=== PATIENT | male | born 1955 | race Caucasian/White ===

== ENCOUNTER 2024-07-14 07:18 | Inpatient (IN) | payer OTHER ==
[~2024-07-14] VITALS: Ht 180.3 cm; Wt 84.7 kg
--- NOTE | 2024-07-14 07:45 | ED.PDOC ---
History of present illness HPI Comments 68 y.o male presents to the ED for a chief complaint of increased urinary frequency associated with intermittent dysuria that started 1 week ago. Patient reports no hematuria, fever or chills. Patient presents with a BG of 447, states he is compliant with taking Metformin and has not missed a dose. Patient denies any vision changes, SOB, chest pain, dry mouth. He denies any substance, alcohol or tobacco use. Chief Complaint: Hyperglycemia Time Seen by MD: 07:25 History of present illness: Nurses Notes, Medications, Allergies Allergies: Uncoded Allergies: CODIENE (Allergy, Unknown, 07/14/24) Information Source: Patient Mode of Arrival: Ambulatory Timing: Weeks (1) Duration: Since onset [place]: Other History of: Diabetes Associated signs and symptoms: Other Past Medical History PAST MEDICAL HISTORY: DM, HTN Surgical History: Denies all surgeries Family History Family History: Reviewed,noncontributory to illness Social History Smoker: Non-Smoker Alcohol: Denies ETOH Use Drugs: Denies Drug Use Lives In: Home Constitutional: denies: chills, diaphoresis, fatigue, fever, malaise, sweats, weakness, others EENTM: denies: blurred vision, double vision, ear bleeding, ear discharge, ear drainage, ear pain, ear ringing, eye pain, eye redness, hearing loss, mouth pain, mouth swelling, nasal discharge, nose bleeding, nose congestion, nose pain, photophobia, tearing, throat pain, throat swelling, voice changes, others Respiratory: denies: cough, hemoptysis, orthopnea, SOB at rest, shortness of breath, SOB with excertion, stridor, wheezing, others Cardiovascular: denies: chest pain, dizzy spells, diaphoresis, Dyspnea on exertion, edema, irregular heart beat, left arm pain, lightheadedness, pal pitations, PND, syncope, others Gastrointestinal: denies: abdomen distended, abdominal pain, blood streaked bowels, constipated, diarrhea, dysphagia, difficulty swallowing, hematemesis, melena, nausea, poor appetite, poor fluid intake, rectal bleeding, rectal pain, vomiting, others Genitourinary: reports: dysuria, frequency; denies: burning, flank pain, hematuria, incontinence, penile discharge, penile sore, pain, testicle pain, testicle swelling, urgency, others Neurological: denies: dizziness, fainting, headache, left sided numbness, left sided weakness, numbness, paresthesia, pre-existing deficit, right sided numbness, right sided weakness, seizure, speech problems, tingling, tremors, weakness, others Musculoskeletal: denies: back pain, gout, joint pain, joint swelling, muscle pain, muscle stiffness, neck pain, others Integumetry: denies: bruises, change in color, change in hair/nails, dryness, laceration, lesions, lumps, rash, wounds, others Allergic/Immunocompromised: denies: Difficulty Healing, Frequent Infections, Hives, Itching, others Hematologic/Lymphatic: denies: anemia, blood clots, easy bleeding, easy bruising, swollen glands, others Endocrine: denies: excessive hunger, excessive sweating, excessive thirst, excessive urination, flushing, intolerance to cold, intolerance to heat, unexp lained weight gain, unexplained weight loss, others Psychiatric: denies: anxiety, bipolar disorder, depression, hopeless, panic disorder, schizophrenia, sleepless, suicidal, others All Other Systems: Reviewed and Negative Physical Exam General Appearance: Moderate Distress HEENT: Normal ENT Inspection, Pharynx Normal, TMs Normal Neck: Full Range of Motion, Non-Tender, Normal, Normal Inspection Respiratory: Chest Non-Tender, Lungs Clear, No Accessory Muscle Use, No Respiratory Distress, Normal Breath Sounds Cardiovascular: No Edema, No JVD, No Murmur, No Gallop, Normal Peripheral Pulses, Regular Rate/Rhythm Breast Exam: Deferred Gastrointestinal: No Organomegaly, Non Tender, No Pulsatile Mass, Normal Bowel Sounds, Soft Genitalia: Deferred Pelvic: Deferred Rectal: Deferred Extremities: No calf tenderness, Normal capillary refill, Normal inspection, Normal range of motion, Non-tender, No pedal edema Musculoskeletal : Apperance: Normal Neurologic: Alert, shift supervisor film processing II-XII nml as Tested, No Motor Deficits, Normal Affect, Normal Mood, No Sensory Deficits Cerebellar Function: Normal Reflexes: Normal Skin: Dry, Normal Color, Warm Peripheral Pulses: 3+ Radial (R), 3+ Radial (L) Lymphatic: No Adenopathy Was a procedure done? Was a procedure done?: No Differential Diagnosis (DM) Differential Diagnosis: Dehydration, Electrolyte Abnormality, Hyperglycemia, Hyperosmolar State, UTI X-Ray, Labs, Meds, VS Vital Signs Date Time Temp Pulse Resp B/P (MAP) Pulse Ox O2 Delivery O2 Flow Rate FiO2 07/14/24 07:38 Room Air* 0 21 07/14/24 07:31 97.8 69 20 182/81 (114) 97 97.8 Lab Test 07/14/24 07:30 07/14/24 07:28 Range/Units Urine Color Pending Urine Clarity Pending Urine pH Pending Urine Specific [place] Pending Urine Protein Pending Urine Ketones Pending Urine Blood Pending Urine Nitrite Pending Urine Bilirubin Pending Urine Urobilinogen Pending Urine Leukocyte Esterase Pending Urine RBC Pending Urine Microscopic WBC Pending Urine Squamous Epithelial Cells Pending Urine Bacteria Pending Urine Glucose Pending POC Glucose 447 *H 70-106 mg/dl Patient alert. Complaining of frequent urination. Blood pressure elevated. Blood sugar elevate. Establish intravenous access. Was given fluids. Was given insulin. Was given clonidine. Abdomen is soft nontender. Reviewed his history. Explained to the patient. Continue monitoring. Time of 1ST Reevaluation: 07:42 Reevaluation 1ST: Unchanged Patient Education/Counseling: Diagnosis, Treatment, Prognosis Family Education/Counseling: No Family Present Departure 1 Departure Time of Disposition: 08:11 Impression: Primary Impression: Uncontrolled diabetes mellitus Qualified Codes: E13.65 - Other specified diabetes mellitus with hyperglycemia Additional Impression: Hypertensive urgency Disposition: ADMITTED INPATIENT Admit to: Med Surg Condition: Guarded Critical Care Note Critical Care Time?: No Stability Stability form required: No I personally scribed for JOHN HAMPTON MD ([email or web address]) on 07/14/24 at 07:45. Electronically submitted by Gabriela Pennington ([facility]). JOHN HAMPTON MD Jul 14, 2024 07:45
[2024-07-14 07:47] LABS: Urine Bacteria None Seen /hpf (None Seen)
[2024-07-14 08:25] LABS: Basophils # (auto) 0.1 10 ^3/uL (0-0.2); Basophils % (auto) 0.7 % (0.0-2.0); Eosinophils # (auto) 0.3 10 ^3/uL (0-0.8); Eosinophils % (auto) 2.9 % (0.0-7.0); Hematocrit 46.4 % (41.0-53.0); Hemoglobin 15.8 g/dL (13.5-17.5); Lymphocytes # (auto) 1.8 10 ^3/uL (0.4-5.4); Lymphocytes % (auto) 18.3 % (10.0-50.0); Mean Corpuscular Hemoglobin 29.1 pg (28.0-32.0); Mean Corpuscular Volume 85.8 fL (80.0-100.0); Monocytes # (auto) 0.7 10 ^3/uL (0-1.3); Monocytes % (auto) 7.5 % (0.0-12.0); Neutrophils # (auto) 6.8 10 ^3/uL (1.6-8.6); Neutrophils % (auto) 70.6 % (37.0-80.0); Platelet Count (auto) 253 10^3/uL (140-450); Red Blood Cells 5.41 10^6/uL (4.5-5.90); Red Cell Distribution Width 15.4 % (11.8-14.3); White Blood Cell 9.6 10^3/uL (4.4-10.8)
[2024-07-14 08:27] LABS: Chloride 101 mmol/L (98-107); Potassium 4.1 mmol/L (3.5-5.1)
[2024-07-14 08:28] LABS: Anion Gap 7 (5-15); Carbon Dioxide 25 mmol/L (20-31); Sodium 133 mmol/L (136-145)
[2024-07-14 08:29] LABS: Calcium 10.3 mg/dL (8.7-10.4)
[2024-07-14 08:34] LABS: BUN/Creatinine Ratio 10.4 (10.0-20.0); Blood Urea Nitrogen 12 mg/dL (9-23)
[2024-07-14 08:35] LABS: Urine Blood TRACE /uL (Negative); Urine Clarity Clear (Clear); Urine Protein, UAD Negative (Negative); Urine Specific Gravity 1.027 (1.001-1.035); Urine Squamous Epithelial Cell None Seen /hpf (<5); Urine Urobilinogen Normal (Negative)
[2024-07-14 08:36] LABS: Urine Color Light-Yellow (Yellow)
[2024-07-14 08:36] LABS: Glucose 462 mg/dL (74-106)
[2024-07-14] MEDS: InsuLIN REG 1unit/0.01ml Soln (100units/ml) IV ONE (08:43)
[2024-07-14] MEDS: cloNIDine HCL 0.1 MG TAB PO ONE (09:32)
[2024-07-14] MEDS ORDERED: NITROGLYCERIN 0.4 MG SL TAB SL PRN (16:30)
[2024-07-14] MEDS ORDERED: HYDROcodone-ACET 5/325MG TAB PO PRN (16:30)
[2024-07-14] MEDS ORDERED: DOCUSATE SOD 100 MG CAP PO PRN (16:30)
[2024-07-14] MEDS ORDERED: ONDANSETRON HCL 4 MG/2 ML VIAL IV PRN (16:30)
[2024-07-14] MEDS ORDERED: MORPHINE SULFATE INJ 2 MG/ml SYRG IV PRN (16:30)
[2024-07-14] MEDS ORDERED: AMLO1TAB23 PO (16:36)
[2024-07-14] MEDS ORDERED: LISI40TA16 PO (16:36)
[2024-07-14] MEDS ORDERED: METF-370 PO (16:36)
[2024-07-14] MEDS ORDERED: ATOR40TA52 PO (16:36)
[2024-07-14] MEDS ORDERED: METO-159 PO (16:36)
[2024-07-14] MEDS ORDERED: DEXTROSE (50%) 50ML SYRG IV PRN (16:45)
[2024-07-14] MEDS ORDERED: hydrALAZINE HCL 20 MG/ML VL IV PRN (16:45)
[2024-07-14] MEDS: NIFEdipine ER 30 MG TAB PO ONE (16:56)
[2024-07-14] MEDS: InsuLIN REG 1unit/0.01ml Soln (100units/ml) SC SCH ×2 (16:57→21:18)
[2024-07-14] MEDS: ACCU-CHEK COMFORT CURVE STRIP VI SCH (17:01)
--- NOTE | 2024-07-14 17:06 | DVHHP2 ---
History of Present Illness Reason for Visit: Urinary frequency History of Present Illness Sixto Ferrara is a 68-year-old male with a past medical history of diabetes, hypertension, and hyperlipidemia who came in due to frequent urination and excessive thirst. The patient states this has been happening for a little over a week. He states he thought he had a urinary infection. Patient states he takes his medications in the morning, but sometimes forgets to take them at night. He states he has been diabetic for about 10 years and his medications have never changed. Patient states his primary care provider has been managing his hypertension as well, and that he has not seen a seamer elastic band in years. He has not had an ECHO in years either. Cardiovascular: HTN, hyperipidemia Endocrine: Diabetes Past Surgical History: None Smoke: No ALCOHOL: none Drugs: None Lives: with Family Domestic Violence: Neg Review of Systems Constitutional: No: Fever, Chills, Sweats, Weakness, Malaise, Other Eyes: No: Pain, Vision change, Conjunctivae inflammation, Eyelid inflammation, Other, Redness ENT: No: Ear pain, Ear discharge, Nose pain, Nose discharge, Nose congestion, Mouth pain, Mouth swelling, Throat pain, Throat swelling, Other Respiratory: No: Cough, Dry, Shortness of breath, SOB with excertion, Wheezing, Hemoptysis, Pleuritic Pain, Sputum, Wheezing, Other Cardiovascular: No: Chest Pain, Palpitations, Orthopnea, Paroxysmal Noc. Dyspnea, Edema, Lt Headedness, Other Gastrointestinal: No: Nausea, Vomiting, Abdominal Pain, Diarrhea, Constipation, Melena, Hematochezia, Other Genitourinary: No Dysuria; Frequency; No Incontinence, No Hematuria, No Retention, No Other Musculoskeletal: No: other, neck pain, shoulder pain, arm pain, back pain, hand pain, leg pain, foot pain Skin: No: Rash, Lesions, Jaundice, Bruising, Other Neurological: No: Weakness, Numbness, Incoordination, Change in speech, Confusion, Seizures, Other Allergies: Uncoded Allergies: CODIENE (Allergy, Unknown, 07/14/24) Medications Current Medications Medications Dose Ordered Sig/Param Route Start Time Stop Time Status Last Admin Dose Admin Acetaminophen/ Hydrocodone Bitart 1 tab Q4HP PRN PO 07/14/24 16:30 Ondansetron HCl 4 mg Q4HP PRN IV 07/14/24 16:30 Docusate Sodium 100 mg BIDPRN PRN PO 07/14/24 16:30 Acetaminophen 650 mg Q6HP PRN PO 07/14/24 16:30 Nitroglycerin 0.4 mg Q5MINP PRN SL 07/14/24 16:30 Morphine Sulfate 2 mg Q30M PRN IV 07/14/24 16:30 Nifedipine 90 mg DAILY PO 07/15/24 10:00 UNV Metformin HCl 500 mg BID PO 07/14/24 22:00 UNV Patient Own Medication 1 tab HS PO 07/14/24 22:00 UNV Patient Own Medication 1 tab DAILY PO 07/15/24 10:00 UNV Exam Vital Signs Vital Signs Date Time Temp Pulse Resp B/P (MAP) Pulse Ox O2 Delivery O2 Flow Rate FiO2 07/14/24 14:00 98.2 70 16 114/69 (84) 95 98.2 07/14/24 07:38 Room Air* 0 21 General Appearance: Alert, Oriented X3, Cooperative, mild distress HEENT: Atraumatic, PERRLA, Mucous membr. moist/pink Respiratory: Clear to auscultation, Normal air movement, Other Cardiovascular: Regular rate, Normal S1, Normal S2 Abdominal: Normal bowel sounds, Soft, No tenderness, No hepatospenomegaly Extremities: No clubbing, No cyanosis, No edema, Normal pulses, No tenderness/swelling Skin: No rashes, No breakdown, No significant lesion Neuro: Normal gait, Normal speech, Strength at 5/5 X4 ext Psych/Mental Status: Mental status NL, Mood NL Labs/Xrays Labs Test 07/14/24 09:52 07/14/24 07:59 07/14/24 07:30 Range/Units POC Glucose 345 H 70-106 mg/dl White Blood Count 9.6 4.4-10.8 10^3/uL Red Blood Count 5.41 4.5-5.90 10^6/uL Hemoglobin 15.8 13.5-17.5 g/dL Hematocrit 46.4 41.0-53.0 % Mean Corpuscular Volume 85.8 80.0-100.0 fL Mean Corpuscular Hemoglobin 29.1 28.0-32.0 pg Mean Corpuscular Hemoglobin Concent 34.0 32.0-36.0 g/dL Red Cell Distribution Width 15.4 H 11.8-14.3 % Platelet Count 253 140-450 10^3/uL Mean Platelet Volume 8.1 6.9-10.8 fL Neutrophils (%) (Auto) 70.6 37.0-80.0 % Lymphocytes (%) (Auto) 18.3 10.0-50.0 % Monocytes (%) (Auto) 7.5 0.0-12.0 % Eosinophils (%) (Auto) 2.9 0.0-7.0 % Basophils (%) (Auto) 0.7 0.0-2.0 % Neutrophils # (Auto) 6.8 1.6-8.6 10 ^3/uL Lymphocytes # (Auto) 1.8 0.4-5.4 10 ^3/uL Monocytes # (Auto) 0.7 0-1.3 10 ^3/uL Eosinophils # (Auto) 0.3 0-0.8 10 ^3/uL Basophils # (Auto) 0.1 0-0.2 10 ^3/uL Nucleated Red Blood Cells 0.0 % Sodium Level 133 L 136-145 mmol/L Potassium Level 4.1 3.5-5.1 mmol/L Chloride Level 101 98-107 mmol/L Carbon Dioxide Level 25 20-31 mmol/L Anion Gap 7 5-15 Blood Urea Nitrogen 12 9-23 mg/dL Creatinine 1.15 0.700-1.30 mg/dL Glomerular Filtration Rate Calc 70 >90 mL/min BUN/Creatinine Ratio 10.4 10.0-20.0 Serum Glucose 462 *H 74-106 mg/dL Calcium Level 10.3 8.7-10.4 mg/dL Urine Color Light-yellow Yellow Urine Clarity Clear Clear Urine pH 5.0 5.0-9.0 Urine Specific [place] 1.027 1.001-1.035 Urine Protein Negative Negative Urine Ketones Negative Negative Urine Blood Trace H Negative /uL Urine Nitrite Negative Negative Urine Bilirubin Negative Negative Urine Urobilinogen Normal Negative mg/dL Urine Leukocyte Esterase Negative Negative /uL Urine RBC <1 0 - 3 /hpf Urine Microscopic WBC 0-3 /HPF Urine Squamous Epithelial Cells None seen <5 /hpf Urine Bacteria None seen None Seen /hpf Urine Glucose 4+ H Normal mg/dL Assessment/Plan Assessment/Plan Assessment: Uncontrolled diabetes mellitus, Hypertensive urgency, Hyperlipidemia, Plan: Admit to [facility], Antihypertensives, PRN antihypertensives, Accu checks Q AC&HS with sliding scale, Start glipizide, A1c, Home medications reconciled, Plan discussed with: Patient My Orders Orders - GEO TINOCO Procedure Category Date Status Time Admit ADMIT 07/14/24 Transmitted 16:28 Code Status CODE 07/14/24 Transmitted 16:28 2 Gm Sodium Diet DIET 07/14/24 Transmitted Dinner Hydrocodone-Acet PHA 07/14/24 In Process 5/325mg Tab ([place] 16:30 Ondansetron Hcl PHA 07/14/24 In Process (Zofran) 16:30 Docusate Sodium PHA 07/14/24 In Process Capsule (Colace 16:30 Complete Blood Count LAB 07/15/24 Verified 04:00 Comprehensive LAB 07/15/24 Verified Metabolic Panel 04:00 Condition: Serious BAILEY 07/14/24 In Process 16:28 Acetaminophen Tablet PHA 07/14/24 In Process (Tylenol Tablet) 16:30 Nitroglycerin PHA 07/14/24 In Process Sublingual (Ntrostat 16:30 Morphine Sulfate PHA 07/14/24 In Process Injection 16:30 Stat Ekg For Chest BAILEY 07/14/24 In Process Pain 16:28 Notify Md Of Changes BAILEY 07/14/24 In Process From Base 16:28 Sheltered Workshop Worker For BAILEY 07/14/24 In Process 24 Hours 16:28 Emergency Dysrhythmia BAILEY 07/14/24 In Process Protocol 16:28 Rhythm Strips Once BAILEY 07/14/24 In Process Every Shift 16:28 Oxygen By Nasal RT 07/14/24 Transmitted Cannula 16:28 Nifedipine Er PHA 07/14/24 Logged (Procardia Xl 16:45 Nifedipine Er PHA 07/15/24 Logged (Procardia Xl 10:00 Metformin PHA 07/14/24 Logged Hydrochloride 22:00 (Nf) Atorvastatin PHA 07/14/24 Logged Calcium 22:00 (Nf) Lisinopril PHA 07/15/24 Logged 10:00 Carvedilol Tablet PHA 07/14/24 Verified (Coreg Tablet) 22:00 Date of Service: Jul 14, 2024 Billing Provider: GEO TINOCO Common Visit Codes: [id number] INP/OBS CARE (MOD) GEO TINOCO Jul 14, 2024 17:06
[2024-07-14] MEDS ORDERED: METO-158 PO (17:10)
[2024-07-14 17:53] VITALS: BP 174/85; PULSE 73; RESP 19; TEMP 97.8; O2SAT 98
[2024-07-14 18:08] VITALS: PULSE 73; RESP 19; O2SAT 98
--- NOTE | 2024-07-14 18:09 | DVH ---
Portable chest CLINICAL INDICATION: Shortness of breath FINDINGS: Heart size is slightly enlarged. The aorta is tortuous. No infiltrates or effusions. IMPRESSION: 1. No acute cardiopulmonary pathology
[2024-07-14] MEDS: glipiZIDE 5 MG TAB PO SCH (18:30)
[2024-07-14 20:00] VITALS: PULSE 72
[2024-07-14 20:48] VITALS: BP 159/85; PULSE 76; RESP 16; TEMP 98.1; O2SAT 94
[2024-07-14] MEDS: ATORVASTATIN 20 MG TAB PO SCH (21:19)
[2024-07-14] MEDS: CARVEDILOL 3.125 MG TAB PO SCH (21:20)
[2024-07-14] MEDS: metFORMIN HYDROCHLORIDE 500 MG TAB PO SCH (21:20)
[2024-07-14] MEDS ORDERED: PATIENTS OWN MEDICATION (Atorvastatin Calcium 1 TAB) PO SCH (22:00)
[2024-07-15] VITALS (8 sets, daily range): BP systolic 126–153; BP diastolic 66–92; PULSE 68–84; RESP 14–18; TEMP 97.7–98.2; O2SAT 94–97
[2024-07-15 06:54] LABS: Alanine Aminotransferase 24 U/L (7-40); Albumin 4.1 g/dL (3.2-4.8); Alkaline Phosphatase 104 U/L (46-116); Anion Gap 9 (5-15); Aspartate Aminotransferase 15 U/L (13-40); Bilirubin, Total 0.6 mg/dL (0.2-1.0); Calcium 9.9 mg/dL (8.7-10.4); Carbon Dioxide 24 mmol/L (20-31); Chloride 104 mmol/L (98-107); Sodium 137 mmol/L (136-145); Total Protein 6.5 g/dL (5.7-8.2)
[2024-07-15 06:58] LABS: Basophils # (auto) 0 10 ^3/uL (0-0.2); Basophils % (auto) 0.4 % (0.0-2.0); Eosinophils # (auto) 0.3 10 ^3/uL (0-0.8); Eosinophils % (auto) 3.5 % (0.0-7.0); Hematocrit 45.6 % (41.0-53.0); Hemoglobin 15.6 g/dL (13.5-17.5); Lymphocytes # (auto) 1.8 10 ^3/uL (0.4-5.4); Lymphocytes % (auto) 20.5 % (10.0-50.0); Mean Corpuscular Hemoglobin 28.7 pg (28.0-32.0); Mean Corpuscular Hgb Conc. 34.2 g/dL (32.0-36.0); Mean Corpuscular Volume 83.9 fL (80.0-100.0); Monocytes # (auto) 0.8 10 ^3/uL (0-1.3); Monocytes % (auto) 9.6 % (0.0-12.0); Neutrophils # (auto) 5.6 10 ^3/uL (1.6-8.6); Nucleated Red Blood Cells % 0.1 %; Platelet Count (auto) 230 10^3/uL (140-450); Red Blood Cells 5.44 10^6/uL (4.5-5.90); Red Cell Distribution Width 15.3 % (11.8-14.3); White Blood Cell 8.5 10^3/uL (4.4-10.8)
[2024-07-15 07:02] LABS: Blood Urea Nitrogen 8 mg/dL (9-23); Glucose 156 mg/dL (74-106)
[2024-07-15] MEDS: INSULIN LANTUS (GLARGINE) 1 /0.01ml (100units/ml) SC SCH (09:10)
[2024-07-15] MEDS: ACETAMINOPHEN 325 MG TAB PO PRN (09:11)
[2024-07-15] MEDS: LISINOPRIL 20 MG TAB PO SCH (09:12)
[2024-07-15] MEDS: NIFEdipine ER 30 MG TAB PO SCH (09:13)
[2024-07-15] MEDS ORDERED: PATIENTS OWN MEDICATION (Lisinopril 1 TAB) PO SCH (10:00)
--- NOTE | 2024-07-15 15:20 | DVHPNRES ---
Progress Note Date Seen: Jul 15, 2024 Resident Creating Document: TAMRA LUCERO RESIDENT Has the PT tested + for MRSA If YES, has PT been informed?: No Medical Necessity Reason Pt with a Central, PICC or Fol: No Subjective Review of Systems This is a 68-year-old male with past medical history of hypertension, hyperlipidemia, type 2 diabetes mellitus who presented to the ED with chief complaint of urinary urgency, excessive thirst and nausea sensation. Patient stated that he has been having this sensation for the past five days but got worse recently prompting his visit to the ED. patient states that he takes all medications that are prescribed to him but when questioned in detail, the patient is not able to say which medication he takes and seems to be noncompliant. Patient reports that was diagnosed with diabetes for about more than 10 years ago and his medications has been the same since then. Upon admission, initial labs CBC and BNP were grossly unremarkable, hemoglobin A1c came back at 13.8% and blood glucose came back significantly elevated above 462 but no evidence of DKA at that time. Initial blood pressure was also significantly elevated at 180/85 mmHg. Initial creatinine was 1.15. Chest x- ray came back grossly unremarkable with no evidence of clear consolidations at this time. Patient was admitted for further assessment and management of hypertensive emergency and uncontrolled type 2 diabetes mellitus with severe hyperglycemia. Patient seen and examined at bedside. Patient reports urinary urgency and frequency, feeling thirsty and nausea sensation. We start the patient on Lantus 18 units q.a.m. with moderate sliding scale insulin. Despite aggressive hyperglycemia management blood glucose still over 250 at this time. Blood pressure has been better controlled at this time we will lisinopril 40 mg daily, nifedipine 90 mg daily, carvedilol 6.25 q.12. We will continue current medical management and most likely increase Lantus to 22 units q.a.m. patient denies fever/chills, chest pain, shortness of breath, motor or sensory deficits or any other symptoms at this time. ROS Constitutional: Denies weight loss, fever and chills. HEENT: Denies changes in vision and hearing. Respiratory: Denies shortness of breath and cough Cardiovascular: Denies chest discomfort or palpitations GI: Denies abdominal pain, nausea, vomiting and diarrhea. : Denies dysuria and urinary frequency. Musculoskeletal: Denies myalgias and joint pain Skin: Denies rash and pruritus. Neurological: Denies dizziness, headache, vision or hearing problems Objective vital signs Vital Sign Date Time Temp Pulse Resp B/P (MAP) Pulse Ox O2 Delivery O2 Flow Rate FiO2 07/15/24 13:00 98.2 73 14 145/87 (106) 94 98.2 07/15/24 08:00 Room Air* 0 21 Total Intake and Output 07/14/24 07/14/24 07/15/24 15:00 23:00 07:00 Intake Total 300 ml Balance 300 ml medications Current Medications Medications Dose Ordered Sig/Param Route Start Time Stop Time Status Last Admin Dose Admin Acetaminophen/ Hydrocodone Bitart 1 tab Q4HP PRN PO 07/14/24 16:30 Ondansetron HCl 4 mg Q4HP PRN IV 07/14/24 16:30 Docusate Sodium 100 mg BIDPRN PRN PO 07/14/24 16:30 Acetaminophen 650 mg Q6HP PRN PO 07/14/24 16:30 07/15/24 09:11 650 MG Nitroglycerin 0.4 mg Q5MINP PRN SL 07/14/24 16:30 Morphine Sulfate 2 mg Q30M PRN IV 07/14/24 16:30 Nifedipine 90 mg DAILY PO 07/15/24 10:00 07/15/24 09:13 90 MG Patient Own Medication 1 tab HS PO 07/14/24 22:00 UNV Patient Own Medication 1 tab DAILY PO 07/15/24 10:00 UNV Carvedilol 6.25 mg Q12HR PO 07/14/24 22:00 07/15/24 09:12 6.25 MG Atorvastatin Calcium 40 mg HS PO 07/14/24 22:00 07/14/24 21:19 40 MG Lisinopril 40 mg DAILY PO 07/15/24 10:00 07/15/24 09:12 40 MG Diagnostic Test (Pha) 1 strip ACHS 07/14/24 17:00 07/15/24 11:59 1 STRIP Insulin Human Regular HS SC 07/14/24 22:00 07/14/24 21:18 6 UNITS Insulin Human Regular AC SC 07/14/24 17:00 07/15/24 12:02 9 UNITS Dextrose 50 ml UD PRN IV 07/14/24 16:45 Hydralazine HCl 10 mg Q6HP PRN IV 07/14/24 16:45 Insulin Glargine 18 units QAM SC 07/15/24 09:00 07/15/24 09:10 18 UNITS Examination Physical Examination General: Patient alert and oriented in person, place and time. Patient following commands. HEENT: Normocephalic, atraumatic, moist mucous membranes Respiratory/pulmonary: Clear lungs bilaterally, no associated crackles or wheezes. Cardiovascular: Normal heart sounds S1 and S2 with no associated murmurs Abdomen: Abdomen nondistended, there is no pain to palpation in any of the abdominal quadrants, no palpable masses. Extremities: There is no peripheral edema present at the lower extremities. Peripheral Pulses: 3+ Radial (R). 3+ Radial (L). 3+ Dorsalis pedis (R). 3+ Dorsalis pedis(L) Skin: No rashes or pruritus, there is no sacral edema present at this time. Neurological: Intact cranial nerves with no focal neurologic deficits laboratory and microbiology Laboratory Tests 07/15/24 05:41 Test 07/15/24 05:41 Range/Units Serum Glucose 156 #H 74-106 mg/dL Problem List/Assessment/Plan Problem List/Assessment/Plan Assessment/plan Hypertensive emergency with organ damage (kidney) -initial blood pressure was 182/81mmhg -continue lisinopril 40 mg daily, nifedipine 90 mg daily, carvedilol 6.25 q.12 -monitor blood pressure closely KATHY likely due to above -initial creatinine was 1.15, currently at 0.89 -control BP -monitor kidney function, avoid nephrotoxic drugs Uncontrolled Type II Diabetes Mellitus -initial blood glucose was greater than 462 -hemoglobin A1c was 13.8% -patient was started on Lantus 18 units daily -we will increase Lantus to 22 units daily -continue moderate sliding scale insulin -monitor blood glucose closely Dyslipidemia -ordered lipid panel -continue atorvastatin 10 mg daily Goals of care discussed with the patient at bedside for > 25min, FULL CODE Plan discussed with Dr. Cavanaugh Plan discussed with: Patient My Orders My Orders Orders - TAMRA LUCERO Procedure Category Date Status Time Insulin Lantus PHA 07/15/24 In Process (Glargine) (Lantus) 09:00 Date of Service: Jul 15, 2024 Billing Provider: LIBERTAD CAVANAUGH MD Common Visit Codes: [id number] INP/OBS CARE(MOD) TAMRA LUCERO RESIDENT Jul 15, 2024 15:20 LIBERTAD CAVANAUGH MD Jul 15, 2024 21:49
--- NOTE | 2024-07-15 16:12 | DVHSR ---
APPROVED REPORT EXAM: Two-dimensional and M-mode echocardiogram with Doppler and color Doppler. Blood Pressure: 133/70 mmHg INDICATION Dizziness and Vertigo Structural deficits RISK FACTORS Height: 5'11", Weight: 190 DIMENSIONS LVDd4.4 (3.8-5.7cm)LA (2D)3.7 (1.9-4.0cm)Aortic Root3.3 (2.0-3.7cm) LVDs2.6 (2.5-4.0cm)LA (MM) (1.9-4.0cm)Aortic Cusp Exc1.9 (1.5-2.0cm) EF (%) 72.0 (55-70%)Rt. Atrium3.6 (1.9-4.0cm)Asc. Aorta2.9 cm IVSd1.0 (0.7-1.1cm)RV (D)3.8 (1.8-2.4cm) Mitral Valve MitralMitral Stenosis E wave0.56m/sMV Mean GR.mmHg A wave0.79m/sMV Peak GR.mmHg E/A ratio0.72D MVAcm2 DECEL [id number] 1/2 Timems Aortic Valve Aortic ValveAortic Stenosis V10.94m/Vinicius Mean GR.3mmHg V21.19m/Vinicius Peak GR.6mmHg LVOT Diameter2.2 (1.8-2.4cm)Doppler AVA3.00cm2 Pulmonic Valve V20.99m/s Other Information Quality : Technically LimitedRhythm : Technically limited study due to body habitus. Conclusion LVEF 60-65%, normal function RV function normal valves grossly normal
[2024-07-16 01:00] VITALS: BP 128/69; PULSE 74; RESP 18; TEMP 97.7; O2SAT 93
[2024-07-16 05:00] VITALS: BP 137/79; PULSE 74; RESP 18; TEMP 97.7; O2SAT 97
[2024-07-16 06:30] LABS: Anion Gap 8 (5-15); Calcium 9.9 mg/dL (8.7-10.4); Carbon Dioxide 25 mmol/L (20-31); Chloride 103 mmol/L (98-107); Potassium 4.2 mmol/L (3.5-5.1)
[2024-07-16 06:33] LABS: Sodium 136 mmol/L (136-145)
[2024-07-16 06:36] LABS: BUN/Creatinine Ratio 14.5 (10.0-20.0); Blood Urea Nitrogen 17 mg/dL (9-23)
[2024-07-16 06:43] LABS: Glucose 236 mg/dL (74-106)
[2024-07-16 08:05] VITALS: PULSE 73; RESP 18; O2SAT 100
[2024-07-16] MEDS: INSULIN LANTUS (GLARGINE) 1 /0.01ml (100units/ml) SC SCH (08:15)
[2024-07-16 08:47] VITALS: BP 148/81; PULSE 73; RESP 20; TEMP 97.8; O2SAT 100
[2024-07-16] MEDS: INSULIN LANTUS (GLARGINE) 1 /0.01ml (100units/ml) SC ONE (09:36)
[2024-07-16] MEDS ORDERED: HYDR12.59 PO (09:42)
[2024-07-16] MEDS ORDERED: CARV6.2551 PO (09:42)
[2024-07-16] MEDS ORDERED: NIFE90TA75 PO (09:42)
[2024-07-16] MEDS ORDERED: DEXTROSE (50%) 50ML SYRG IV PRN (09:45)
[2024-07-16] MEDS ORDERED: EMPA1TAB PO (09:50)
--- NOTE | 2024-07-16 09:53 | DVHDSRES ---
Discharge Summary Date of Admission Resident Creating Document: TAMRA LUCERO RESIDENT Jul 14, 2024 at 16:28 Date of Discharge: Jul 16, 2024 Admitting Diagnosis Hypertensive emergency Wounds: No wounds present at this time. Labs/Diagnostic Data: Laboratory Results Test 07/16/24 09:29 07/16/24 05:08 07/15/24 05:41 07/14/24 07:30 POC Glucose 380 mg/dl (70-106) Sodium Level 136 mmol/L (136-145) Potassium Level 4.2 mmol/L (3.5-5.1) Chloride Level 103 mmol/L (98-107) Carbon Dioxide Level 25 mmol/L (20-31) Anion Gap 8 (5-15) Blood Urea Nitrogen 17 mg/dL (9-23) Creatinine 1.17 mg/dL (0.700-1.30) Glomerular Filtration Rate Calc 69 mL/min (>90) BUN/Creatinine Ratio 14.5 (10.0-20.0) Serum Glucose 236 mg/dL (74-106) Calcium Level 9.9 mg/dL (8.7-10.4) White Blood Count 8.5 10^3/uL (4.4-10.8) Red Blood Count 5.44 10^6/uL (4.5-5.90) Hemoglobin 15.6 g/dL (13.5-17.5) Hematocrit 45.6 % (41.0-53.0) Mean Corpuscular Volume 83.9 fL (80.0-100.0) Mean Corpuscular Hemoglobin 28.7 pg (28.0-32.0) Mean Corpuscular Hemoglobin Concent 34.2 g/dL (32.0-36.0) Red Cell Distribution Width 15.3 % (11.8-14.3) Platelet Count 230 10^3/uL (140-450) Mean Platelet Volume 7.9 fL (6.9-10.8) Neutrophils (%) (Auto) 66.0 % (37.0-80.0) Lymphocytes (%) (Auto) 20.5 % (10.0-50.0) Monocytes (%) (Auto) 9.6 % (0.0-12.0) Eosinophils (%) (Auto) 3.5 % (0.0-7.0) Basophils (%) (Auto) 0.4 % (0.0-2.0) Neutrophils # (Auto) 5.6 10 ^3/uL (1.6-8.6) Lymphocytes # (Auto) 1.8 10 ^3/uL (0.4-5.4) Monocytes # (Auto) 0.8 10 ^3/uL (0-1.3) Eosinophils # (Auto) 0.3 10 ^3/uL (0-0.8) Basophils # (Auto) 0 10 ^3/uL (0-0.2) Nucleated Red Blood Cells 0.1 % Hemoglobin A1c 13.8 % A1C (<5.7) Total Bilirubin 0.6 mg/dL (0.2-1.0) Aspartate Amino Transferase (AST) 15 U/L (13-40) Alanine Aminotransferase (ALT) 24 U/L (7-40) Alkaline Phosphatase 104 U/L (46-116) Total Protein 6.5 g/dL (5.7-8.2) Albumin 4.1 g/dL (3.2-4.8) Urine Color Light-yellow (Yellow) Urine Clarity Clear (Clear) Urine pH 5.0 (5.0-9.0) Urine Specific [place] 1.027 (1.001-1.035) Urine Protein Negative (Negative) Urine Ketones Negative (Negative) Urine Blood Trace /uL (Negative) Urine Nitrite Negative (Negative) Urine Bilirubin Negative (Negative) Urine Urobilinogen Normal mg/dL (Negative) Urine Leukocyte Esterase Negative /uL (Negative) Urine RBC <1 /hpf (0 - 3) Urine Microscopic WBC /HPF (0-3) Urine Squamous Epithelial Cells None seen /hpf (<5) Urine Bacteria None seen /hpf (None Seen) Urine Glucose 4+ mg/dL (Normal) Other Laboratory Tests 07/16/24 05:08 07/15/24 05:41 Brief Hx & Hospital Course: This is a 68-year-old male with past medical history of hypertension, hyperlipidemia, type 2 diabetes mellitus who presented to the ED with chief complaint of urinary urgency, excessive thirst and nausea sensation. Patient stated that he has been having this sensation for the past five days but got worse recently prompting his visit to the ED. patient states that he takes all medications that are prescribed to him but when questioned in detail, the patient is not able to say which medication he takes and seems to be noncompliant. Patient reports that was diagnosed with diabetes for about more than 10 years ago and his medications has been the same since then. Upon admission, initial labs CBC and BNP were grossly unremarkable, hemoglobin A1c came back at 13.8% and blood glucose came back significantly elevated above 462 but no evidence of DKA at that time. Initial blood pressure was also significantly elevated at 180/85 mmHg. Initial creatinine was 1.15. Chest x- ray came back grossly unremarkable with no evidence of clear consolidations at this time. Patient was initially started on Lantus 18 units q.a.m. and was further increased to 24 units q.a.m.. Moderate sliding scale insulin was also switch to aggressive sliding scale insulin. Patient was started on carvedilol 6.25 mg b.i.d., lisinopril 40 mg daily, nifedipine 90 mg daily, hydrochlorothiazide 12.5 mg daily. Blood pressure better controlled at this time. We explained to the patient that needs to have a special diet carbohydrate restricted for diabetes. Patient was instructed and encouraged to use insulin at home which will be prescribed 25 units q.p.m.. We will also start Jardiance 10 mg daily. Patient was instructed to increase metformin to 1000 b.i.d. today, patient is alert and oriented in person, place and time. Patient denies chest pain, feeling thirsty, shortness of breath, fever/chills or any other symptoms at this time. Patient has no further complaints and states that he is feeling well overall. Patient will be discharged home with all new prescribed medication described above. Patient agrees and understands the plan. ROS Constitutional: Denies weight loss, fever and chills. HEENT: Denies changes in vision and hearing. Respiratory: Denies shortness of breath and cough Cardiovascular: Denies chest discomfort or palpitations GI: Denies abdominal pain, nausea, vomiting and diarrhea. : Denies dysuria and urinary frequency. Musculoskeletal: Denies myalgias and joint pain Skin: Denies rash and pruritus. Neurological: Denies dizziness, headache, vision or hearing problems Physical Examination General: Patient alert and oriented in person, place and time. Patient following commands. HEENT: Normocephalic, atraumatic, moist mucous membranes Respiratory/pulmonary: Clear lungs bilaterally, no associated crackles or wheezes. Cardiovascular: Normal heart sounds S1 and S2 with no associated murmurs Abdomen: Abdomen nondistended, there is no pain to palpation in any of the abdominal quadrants, no palpable masses. Extremities: There is no peripheral edema present at the lower extremities. Peripheral Pulses: 3+ Radial (R). 3+ Radial (L). 3+ Dorsalis pedis (R). 3+ Dorsalis pedis(L) Skin: No rashes or pruritus, there is no sacral edema present at this time. Neurological: Intact cranial nerves with no focal neurologic deficits Consults/Reason for consult N/A Operations or Procedures Portable chest CLINICAL INDICATION: Shortness of breath FINDINGS: Heart size is slightly enlarged. The aorta is tortuous. No infiltrates or effusions. IMPRESSION: 1. No acute cardiopulmonary pathology Condition at Discharge: Stable Final Diagnosis/Problems List Hypertensive emergency with organ damage (kidney) KATHY likely due to above Uncontrolled Type II Diabetes Mellitus with severe hyperglycemia not on DKA Dyslipidemia Discharge Disposition: Home Discharge Instruct/Medications Diet: Consistent carbohydrate Activity: No Restrictions, As Tolerated Follow Up/Referral: F/U with his PCP in 1 week (Dr. Salazar) Medications: Stop Amlodipine 10mg Stop metoprolol tartrate Start nifedipine 90mg daily start carvedilol 6.25mg BID start basaglar 25 units QPM start hydrochlorothiazide 12.5mg daily Start jardiance 10mg daily continue metformin 500mg BID Continue lisinopril 40mg daily Discharge Statement: "Patient was advised to return to the ER or call 911 if any headaches, dizziness, shortness of breath, chest pain, abdominal pain, bleeding, fevers, or worsening of medical condition. Patient was counseled about treatment plan, medications, possible side effects, patientverbalized understanding. All questions were answered to the best of my ability. This discharge took greater then 30 minutes in planning, reviewing documentation, counseling the patient, and discussing with other team members." ASSESSMENT ASSESSMENT Assessment Hypertensive emergency with organ damage (kidney) KATHY likely due to above Uncontrolled Type II Diabetes Mellitus with severe hyperglycemia not on DKA Dyslipidemia Date of Service: Jul 16, 2024 Billing Provider: LIBERTAD DUBOIS MD Common Visit Codes: 45517-UMS/OBS DISCH DAY >30min TAMRA LUCERO RESIDENT Jul 16, 2024 09:53 LIBERTAD DUBOIS MD Jul 16, 2024 21:07
[2024-07-16] MEDS: EMPAGLIFLOZIN 10 MG TAB PO SCH (10:36)
[2024-07-16] MEDS: hydroCHLOROthiazide 25 MG TAB PO ONE (10:36)
[2024-07-16] MEDS: ACCU-CHEK COMFORT CURVE STRIP VI SCH (11:30)
[2024-07-16] MEDS ORDERED: INSU1INJ19 SC (11:36)
[2024-07-16] MEDS ORDERED: METF-372 PO (11:38)
[2024-07-16] MEDS: InsuLIN REG 1unit/0.01ml Soln (100units/ml) SC SCH (12:11)
[2024-07-16 12:32] VITALS: BP 145/84; PULSE 71; RESP 20; TEMP 97.6; O2SAT 96
[2024-07-16 14:02] VITALS: BP 145/84; PULSE 71; RESP 17; TEMP 98.4; O2SAT 94
[2024-07-16] MEDS ORDERED: InsuLIN REG 1unit/0.01ml Soln (100units/ml) SC SCH (22:00)
== END 2024-07-16 16:08 | disposition home or self-care (01) | DRG 638 ==
LOC: ER 07:18 → OVERFLOW 16:28 → TELE-CENTR 17:48 → CENTRAL 07-15 18:24
PROVIDERS: ADMIT Internal Medicine; ATTEND Internal Medicine
DX: E11.65 Type 2 diabetes mellitus with hyperglycemia (principal); I16.1 Hypertensive emergency; N17.9 Acute kidney failure, unspecified; E78.5 Hyperlipidemia, unspecified; I10 Essential (primary) hypertension; Z88.5 Allergy status to narcotic agent
CPT/HCPCS: 36415; 71045; 80048; 80053; 81001; 82962; 83036; 85025; 93306; 96372; 96374; G0378; J1815